=== PATIENT | female | born 1960 | race Caucasian/White ===

== ENCOUNTER 2020-05-18 09:42 | Day surgery (SDC) | payer MEDICARE ==
[2020-05-18] MEDS ORDERED: Depo-Medrol 40 MG/ML IM ONE (09:43)
[2020-05-18] MEDS ORDERED: BUPIVACAINE 0.5% VIAL IJ ONE (09:43)
[2020-05-18] MEDS ORDERED: DIPRIVAN 200 MG/20 ML IV ONE (11:02)
[2020-05-18] MEDS ORDERED: Ketamine HCl 50 MG/ML ONE (11:02)
--- NOTE | 2020-05-18 11:49 | XRAY ---
Indication: Right knee injection. Intraoperative fluoroscopy was provided for 7 seconds. Single digital spot image submitted for interpretation demonstrates needle tip projecting over the right femur intercondylar notch. Small amount of contrast injected for needle tip placement. Correlate with intraoperative findings/report.
--- NOTE | 2020-05-18 11:49 | XRAY ---
Indication: Left knee injection. Intraoperative fluoroscopy was provided for 3 seconds. Single digital spot image submitted for interpretation demonstrates needle tip projecting over the left femur intercondylar notch. Small amount of contrast injected for needle tip placement. Correlate with intraoperative findings/report.
--- NOTE | 2020-05-18 13:04 | XRAY ---
7 seconds fluoroscopy time in surgery for right knee injection.
--- NOTE | 2020-05-18 13:14 | XRAY ---
3 seconds fluoroscopy time in surgery for left knee injection.
[2020-05-18] MEDS ORDERED: Lactated Ringers 1,000 ML IV ONE (15:29)
== END 2020-05-18 11:31 | disposition home or self-care (01) ==
LOC: SDC-PAIN 09:42
PROVIDERS: ATTEND Psychiatry & Neurology Pain Medicine
DX: M17.0 Bilateral primary osteoarthritis of knee (principal); E11.9 Type 2 diabetes mellitus without complications; I10 Essential (primary) hypertension; E78.5 Hyperlipidemia, unspecified; K21.9 Gastro-esophageal reflux disease without esophagitis; J45.909 Unspecified asthma, uncomplicated
CPT/HCPCS: 73560; 77002; 82947; J1030; J2704

== ENCOUNTER 2020-07-20 11:17 | Day surgery (SDC) | payer MEDICARE ==
[2020-07-20] MEDS ORDERED: Depo-Medrol 40 MG/ML IM ONE (11:18)
[2020-07-20] MEDS ORDERED: BUPIVACAINE 0.5% VIAL IJ ONE (11:18)
[2020-07-20] MEDS ORDERED: Lactated Ringers 1,000 ML IV ONE (14:06)
--- NOTE | 2020-07-20 15:00 | XRAY ---
Indication: Bilateral SI joint injection. Intraoperative fluoroscopy provided for 16 seconds. 4 digital spot images submitted for interpretation demonstrates posterior needle tip projecting over the inferior left and right SI joint. Correlate with intraoperative findings/report.
--- NOTE | 2020-07-20 15:03 | XRAY ---
16 seconds fluoroscopy time in surgery for bilateral SI joint injections.
== END 2020-07-20 13:43 | disposition home or self-care (01) ==
LOC: SDC-PAIN 11:17
PROVIDERS: ATTEND Psychiatry & Neurology Pain Medicine
DX: M46.1 Sacroiliitis, not elsewhere classified (principal); E11.9 Type 2 diabetes mellitus without complications; I10 Essential (primary) hypertension; E78.5 Hyperlipidemia, unspecified; K21.9 Gastro-esophageal reflux disease without esophagitis; Z79.899 Other long term (current) drug therapy
CPT/HCPCS: 27096; 72202; 77002; 82947; G0260; J1030

== ENCOUNTER 2020-08-24 09:44 | Day surgery (SDC) | payer MEDICARE ==
[2020-08-24] MEDS ORDERED: BUPIVACAINE 0.5% VIAL IJ ONE (09:45)
[2020-08-24] MEDS ORDERED: Lactated Ringers 1,000 ML IV ONE (09:45)
[2020-08-24] MEDS ORDERED: Ketamine HCl 50 MG/ML ONE (11:20)
[2020-08-24] MEDS ORDERED: DIPRIVAN 200 MG/20 ML IV ONE ×2 (11:20→11:28)
--- NOTE | 2020-08-24 12:27 | XRAY ---
Indication: Right knee genicular nerve block. Intraoperative fluoroscopy provided for 8 seconds. 2 digital spot images of the right knee submitted for interpretation demonstrates anterior medial/lateral supracondylar and medial tibial plateau needles. Correlate with intraoperative findings/report.
--- NOTE | 2020-08-24 12:29 | XRAY ---
8 seconds fluoroscopy time in surgery for genicular nerve block of the right knee.
--- NOTE | 2020-08-24 12:29 | XRAY ---
Indication: Left knee genicular nerve block. Intraoperative fluoroscopy provided for 8 seconds. 2 digital spot images of the left knee submitted for interpretation demonstrates anterior medial/lateral supracondylar and medial tibial plateau needles. Correlate with intraoperative findings/report.
--- NOTE | 2020-08-24 12:40 | XRAY ---
8 seconds fluoroscopy time in surgery for genicular nerve block of the left knee.
== END 2020-08-24 11:51 | disposition home or self-care (01) ==
LOC: SDC-PAIN 09:44
PROVIDERS: ATTEND Psychiatry & Neurology Pain Medicine
DX: M46.1 Sacroiliitis, not elsewhere classified (principal); E11.9 Type 2 diabetes mellitus without complications; I10 Essential (primary) hypertension; E78.5 Hyperlipidemia, unspecified; J45.909 Unspecified asthma, uncomplicated; K21.9 Gastro-esophageal reflux disease without esophagitis; Z79.899 Other long term (current) drug therapy
CPT/HCPCS: 64454; 73560; 77002; 82947; J2704

== ENCOUNTER 2020-12-07 10:59 | Day surgery (SDC) | payer MEDICARE ==
[2020-12-07] MEDS ORDERED: BUPIVACAINE 0.5% VIAL IJ ONE (11:00)
[2020-12-07] MEDS ORDERED: GELSYN-3 IU ONE (11:00)
[2020-12-07] MEDS ORDERED: DIPRIVAN 200 MG/20 ML IV ONE ×2 (12:23→12:35)
--- NOTE | 2020-12-07 13:54 | XRAY ---
8 seconds fluoroscopy time in surgery for intra-articular injection of the right knee.
--- NOTE | 2020-12-07 13:54 | XRAY ---
Indication: Left knee injection. Intraoperative fluoroscopy provided for 10 seconds. Single digital spot image submitted for interpretation demonstrates needle tip projecting over the left femur intracondylar notch. Small amount of contrast injected for needle tip placement. Correlate with intraoperative findings/report.
--- NOTE | 2020-12-07 13:54 | XRAY ---
Indication: Right knee injection. Intraoperative fluoroscopy provided for 8 seconds. Single digital spot image submitted for interpretation demonstrates needle tip projecting over the right femur intracondylar notch. Small amount of contrast injected for needle tip placement. Correlate with intraoperative findings/report.
--- NOTE | 2020-12-07 13:54 | XRAY ---
10 seconds fluoroscopy time in surgery for intra-articular injection of the left knee.
[2020-12-07] MEDS ORDERED: Lactated Ringers 1,000 ML IV ONE (15:32)
== END 2020-12-07 13:12 | disposition home or self-care (01) ==
LOC: SDC-PAIN 10:59
PROVIDERS: ATTEND Psychiatry & Neurology Pain Medicine
DX: M17.0 Bilateral primary osteoarthritis of knee (principal); E11.9 Type 2 diabetes mellitus without complications; I10 Essential (primary) hypertension; E78.5 Hyperlipidemia, unspecified; J45.909 Unspecified asthma, uncomplicated; K21.9 Gastro-esophageal reflux disease without esophagitis; Z79.899 Other long term (current) drug therapy
CPT/HCPCS: 20610; 73560; 77002; 82947; J2704; Q9966; J7328

== ENCOUNTER 2020-12-14 10:43 | Day surgery (SDC) | payer MEDICARE ==
[2020-12-14] MEDS ORDERED: DIPRIVAN 200 MG/20 ML IV ONE (12:35)
--- NOTE | 2020-12-14 13:33 | XRAY ---
4 seconds fluoroscopy time in surgery for intra-articular injection of the right knee.
--- NOTE | 2020-12-14 13:34 | XRAY ---
Indication: Right knee injection. Intraoperative fluoroscopy provided for 4 seconds. Single digital spot image submitted for interpretation demonstrates needle tip projecting over the right femur intercondylar notch. Small amount of contrast injected for needle tip placement. Correlate with intraoperative findings/report.
--- NOTE | 2020-12-14 13:43 | XRAY ---
4 seconds fluoroscopy time in surgery for intra-articular injection of the left knee.
--- NOTE | 2020-12-14 13:43 | XRAY ---
Indication: Left knee injection. Intraoperative fluoroscopy provided for 4 seconds. Single digital spot image submitted for interpretation demonstrates needle tip projecting over the left femur intercondylar notch. Small amount of contrast injected for needle tip placement. Correlate with intraoperative findings/report.
[2020-12-14] MEDS ORDERED: Lactated Ringers 1,000 ML IV ONE (15:32)
== END 2020-12-14 13:01 | disposition home or self-care (01) ==
LOC: SDC-PAIN 10:43
PROVIDERS: ATTEND Psychiatry & Neurology Pain Medicine
DX: M17.0 Bilateral primary osteoarthritis of knee (principal); Z79.899 Other long term (current) drug therapy; E11.9 Type 2 diabetes mellitus without complications; I10 Essential (primary) hypertension; E78.5 Hyperlipidemia, unspecified; K21.9 Gastro-esophageal reflux disease without esophagitis
CPT/HCPCS: 73560; 77002; 82947; J2704

== ENCOUNTER 2020-12-21 10:49 | Day surgery (SDC) | payer MEDICARE ==
[2020-12-21] MEDS ORDERED: GELSYN-3 IU ONE (10:50)
[2020-12-21] MEDS ORDERED: Xylocaine 1% Vial 30 ML PF IJ ONE (10:50)
[2020-12-21] MEDS ORDERED: DIPRIVAN 200 MG/20 ML IV ONE (13:13)
--- NOTE | 2020-12-21 15:58 | XRAY ---
6 seconds of fluoroscopy was used in surgery for a right intra-articular knee injection.
--- NOTE | 2020-12-21 15:58 | XRAY ---
8 seconds of fluoroscopy was used in surgery for a left intra-articular knee injection.
[2020-12-21] MEDS ORDERED: Lactated Ringers 1,000 ML IV ONE (17:31)
== END 2020-12-21 13:41 | disposition home or self-care (01) ==
LOC: SDC-PAIN 10:49
PROVIDERS: ATTEND Psychiatry & Neurology Pain Medicine
DX: M17.0 Bilateral primary osteoarthritis of knee (principal); E11.9 Type 2 diabetes mellitus without complications; I10 Essential (primary) hypertension; E78.5 Hyperlipidemia, unspecified; Z79.899 Other long term (current) drug therapy
CPT/HCPCS: 20610; 73560; 76942; 77002; 82947; J2001; J2704; Q9966; J7328

== ENCOUNTER 2021-02-08 10:47 | Day surgery (SDC) | payer MEDICARE ==
[2021-02-08] MEDS ORDERED: LIDOCAINE HCL 2% 100 MG/5 ML IJ ONE (10:48)
[2021-02-08] MEDS ORDERED: Lactated Ringers 1,000 ML IV ONE (12:29)
[2021-02-08] MEDS ORDERED: DIPRIVAN 200 MG/20 ML IV ONE (13:16)
--- NOTE | 2021-02-08 15:21 | XRAY ---
Indication: Bilateral L4-S1 MBB. Intraoperative fluoroscopy provided for 17 seconds. Single digital spot image submitted for interpretation demonstrates posterior needle tips projecting over the expected left and right L4-S1 nerve roots. Correlate with intraoperative findings/report.
--- NOTE | 2021-02-08 16:42 | XRAY ---
17 seconds of fluoroscopy was used in surgery for a bilateral L4-S1 MBB.
== END 2021-02-08 14:10 | disposition home or self-care (01) ==
LOC: SDC-PAIN 10:47
PROVIDERS: ATTEND Psychiatry & Neurology Pain Medicine
DX: M47.816 Spondylosis without myelopathy or radiculopathy, lumbar region (principal); E11.9 Type 2 diabetes mellitus without complications; Z79.899 Other long term (current) drug therapy
CPT/HCPCS: 64493; 64494; 72020; 77002; 82947; J2704

== ENCOUNTER 2021-03-15 10:59 | Day surgery (SDC) | payer MEDICARE ==
[2021-03-15] MEDS ORDERED: BUPIVACAINE 0.5% VIAL IJ ONE (11:00)
[2021-03-15] MEDS ORDERED: DIPRIVAN 200 MG/20 ML IV ONE (12:17)
[2021-03-15] MEDS ORDERED: Lactated Ringers 1,000 ML IV ONE (15:21)
--- NOTE | 2021-03-15 16:39 | XRAY ---
Indication: Bilateral L4-S1 MBB. Intraoperative fluoroscopy provided for 15 seconds. Single digital spot image submitted for interpretation demonstrates posterior needle tips projecting over the expected left and right L4-S1 nerve roots. Correlate with intraoperative findings/report.
--- NOTE | 2021-03-15 16:53 | XRAY ---
15 seconds fluoroscopy time in surgery for bilateral L4-S1 MBB.
== END 2021-03-15 12:37 | disposition home or self-care (01) ==
LOC: SDC-PAIN 10:59
PROVIDERS: ATTEND Psychiatry & Neurology Pain Medicine
DX: M47.816 Spondylosis without myelopathy or radiculopathy, lumbar region (principal); E11.9 Type 2 diabetes mellitus without complications; Z79.899 Other long term (current) drug therapy
CPT/HCPCS: 64493; 64494; 72020; 77002; 82947; J2704

== ENCOUNTER 2021-04-19 11:39 | Day surgery (SDC) | payer MEDICARE ==
[2021-04-19] MEDS ORDERED: Depo-Medrol 40 MG/ML IM ONE (11:40)
[2021-04-19] MEDS ORDERED: Xylocaine 1% Vial 30 ML PF IJ ONE (11:40)
[2021-04-19] MEDS ORDERED: BUPIVACAINE 0.5% VIAL IJ ONE (11:40)
[2021-04-19] MEDS ORDERED: DIPRIVAN 200 MG/20 ML IV ONE (14:10)
[2021-04-19] MEDS ORDERED: Lactated Ringers 1,000 ML IV ONE (14:39)
--- NOTE | 2021-04-19 15:16 | XRAY ---
Indication: Right L4-S1 RFA. Intraoperative fluoroscopy provided for 27 seconds. 3 digital spot image submitted for interpretation demonstrates posterior needle tips projecting over the expected right L4-S1 nerve roots. Correlate with intraoperative findings/report.
--- NOTE | 2021-04-19 16:51 | XRAY ---
27 seconds fluoroscopy time in surgery for right L4-S1 RFA.
== END 2021-04-19 14:30 | disposition home or self-care (01) ==
LOC: SDC-PAIN 11:39
PROVIDERS: ATTEND Psychiatry & Neurology Pain Medicine
DX: M47.816 Spondylosis without myelopathy or radiculopathy, lumbar region (principal); F41.9 Anxiety disorder, unspecified; F32.9 Major depressive disorder, single episode, unspecified; E11.9 Type 2 diabetes mellitus without complications; I10 Essential (primary) hypertension; E78.5 Hyperlipidemia, unspecified; Z79.899 Other long term (current) drug therapy
CPT/HCPCS: 64635; 64636; 72100; 77002; 82947; J1030; J2001; J2704

== ENCOUNTER 2021-04-26 11:40 | Day surgery (SDC) | payer MEDICARE ==
[2021-04-26] MEDS ORDERED: Depo-Medrol 40 MG/ML IM ONE (11:41)
[2021-04-26] MEDS ORDERED: Xylocaine 1% Vial 30 ML PF IJ ONE (11:41)
[2021-04-26] MEDS ORDERED: BUPIVACAINE 0.5% VIAL IJ ONE (11:41)
[2021-04-26] MEDS ORDERED: Lactated Ringers 1,000 ML IV ONE (12:39)
[2021-04-26] MEDS ORDERED: DIPRIVAN 200 MG/20 ML IV ONE ×2 (13:41→13:50)
--- NOTE | 2021-04-26 15:15 | XRAY ---
Indication: Left L4-S1 RFA. Intraoperative fluoroscopy provided for 39 seconds. 4 digital spot image submitted for interpretation demonstrates posterior needle tips projecting over the expected left L4-S1 nerve roots. Correlate with intraoperative findings/report.
--- NOTE | 2021-04-26 15:18 | XRAY ---
39 seconds fluoroscopy time in surgery for left L4-S1 RFA.
== END 2021-04-26 14:18 | disposition home or self-care (01) ==
LOC: SDC-PAIN 11:40
PROVIDERS: ATTEND Psychiatry & Neurology Pain Medicine
DX: M47.816 Spondylosis without myelopathy or radiculopathy, lumbar region (principal); Z79.891 Long term (current) use of opiate analgesic; E11.8 Type 2 diabetes mellitus with unspecified complications
CPT/HCPCS: 64635; 64636; 72100; 77002; 82947; J1030; J2001; J2704

== ENCOUNTER 2022-08-15 10:57 | Day surgery (SDC) | payer MEDICARE ==
[2022-08-15] MEDS ORDERED: GELSYN-3 IU ONE (10:58)
[2022-08-15] MEDS ORDERED: DIPRIVAN 200 MG/20 ML IV ONE (12:55)
[2022-08-15] MEDS ORDERED: Lactated Ringers 1,000 ML IV ONE (13:56)
--- NOTE | 2022-08-15 14:12 | XRAY ---
Indication: Right knee injection. Intraoperative fluoroscopy provided for 8 seconds. Single digital spot image submitted for interpretation demonstrates needle tip projecting over the right femur intercondylar notch. Small amount of contrast injected for needle tip placement. Correlate with intraoperative findings/report.
--- NOTE | 2022-08-15 14:13 | XRAY ---
Indication: Left knee injection. Intraoperative fluoroscopy provided for 9 seconds. Single digital spot image submitted for interpretation demonstrates needle tip projecting over the left femur intercondylar notch. Small amount of contrast injected for needle tip placement. Correlate with intraoperative findings/report.
--- NOTE | 2022-08-15 14:14 | XRAY ---
8 seconds of fluoroscopy was used in surgery for a right intra-articular knee injection.
--- NOTE | 2022-08-15 14:15 | XRAY ---
9 seconds of fluoroscopy was used in surgery for a left intra-articular knee injection.
== END 2022-08-15 13:30 | disposition home or self-care (01) ==
LOC: SDC-PAIN 10:57
PROVIDERS: ATTEND Psychiatry & Neurology Pain Medicine
DX: M17.0 Bilateral primary osteoarthritis of knee (principal); E11.9 Type 2 diabetes mellitus without complications; Z79.899 Other long term (current) drug therapy
CPT/HCPCS: 20610; 73560; 77002; 82947; J2704; J7328; Q9966

== ENCOUNTER 2022-08-22 10:54 | Day surgery (SDC) | payer MEDICARE ==
[2022-08-22] MEDS ORDERED: GELSYN-3 IU ONE (10:55)
[2022-08-22] MEDS ORDERED: DIPRIVAN 200 MG/20 ML IV ONE (13:32)
[2022-08-22] MEDS ORDERED: Lactated Ringers 1,000 ML IV ONE (15:29)
--- NOTE | 2022-08-22 16:35 | XRAY ---
Indication: Left knee injection. Intraoperative fluoroscopy provided for 11 seconds. Single digital spot image submitted for interpretation demonstrates needle tip projecting over the left femur intercondylar notch. Small amount of contrast injected for needle tip placement. Correlate with intraoperative findings/report.
--- NOTE | 2022-08-22 16:35 | XRAY ---
Indication: Right knee injection. Intraoperative fluoroscopy provided for 9 seconds. Single digital spot image submitted for interpretation demonstrates needle tip projecting over the right femur intercondylar notch. Small amount of contrast injected for needle tip placement. Correlate with intraoperative findings/report.
--- NOTE | 2022-08-22 16:50 | XRAY ---
9 seconds of fluoroscopy was used in surgery for a right intra-articular knee injection.
--- NOTE | 2022-08-22 16:50 | XRAY ---
11 seconds of fluoroscopy was used in surgery for a left intra-articular knee injection.
== END 2022-08-22 14:10 | disposition home or self-care (01) ==
LOC: SDC-PAIN 10:54
PROVIDERS: ATTEND Psychiatry & Neurology Pain Medicine
DX: M17.0 Bilateral primary osteoarthritis of knee (principal); E11.9 Type 2 diabetes mellitus without complications; Z79.899 Other long term (current) drug therapy
CPT/HCPCS: 20610; 73560; 77002; 82947; J2704; J7328; Q9966

== ENCOUNTER 2022-08-29 11:23 | Day surgery (SDC) | payer MEDICARE ==
[2022-08-29] MEDS ORDERED: GELSYN-3 IU ONE (11:24)
[2022-08-29] MEDS ORDERED: DIPRIVAN 200 MG/20 ML IV ONE ×2 (12:38→12:46)
--- NOTE | 2022-08-29 13:47 | XRAY ---
Indication: Left knee injection. Intraoperative fluoroscopy provided for 8 seconds. Single digital spot image submitted for interpretation demonstrates needle tip projecting of the left femur intercondylar notch. Small amount of contrast injected for needle tip placement. Correlate with intraoperative findings/report.
--- NOTE | 2022-08-29 13:47 | XRAY ---
Indication: Right knee injection. Intraoperative fluoroscopy provided for 5 seconds. Single digital spot image submitted for interpretation demonstrates needle tip projecting of the right femur intercondylar notch. Small amount of contrast injected for needle tip placement. Correlate with intraoperative findings/report.
[2022-08-29] MEDS ORDERED: Lactated Ringers 1,000 ML IV ONE (14:26)
--- NOTE | 2022-08-29 14:45 | XRAY ---
8 seconds of fluoroscopy was used in surgery for a left intra-articular knee injection.
--- NOTE | 2022-08-29 14:45 | XRAY ---
5 seconds of fluoroscopy was used in surgery for a right intra-articular knee injection.
== END 2022-08-29 13:10 | disposition home or self-care (01) ==
LOC: SDC-PAIN 11:23
PROVIDERS: ATTEND Psychiatry & Neurology Pain Medicine
DX: M17.0 Bilateral primary osteoarthritis of knee (principal); E11.9 Type 2 diabetes mellitus without complications; Z79.899 Other long term (current) drug therapy
CPT/HCPCS: 20610; 73560; 77002; 82947; J2704; J7328

== ENCOUNTER 2023-07-31 10:12 | Day surgery (SDC) | payer MEDICARE ==
[2023-07-31] MEDS ORDERED: BUPIVACAINE 0.5% VIAL IJ ONE (10:13)
[2023-07-31] MEDS ORDERED: XYLOCAINE-MPF 1% 5ML SDV IJ ONE (10:13)
[2023-07-31] MEDS ORDERED: Depo-Medrol 40 MG/ML IM ONE (10:13)
[2023-07-31] MEDS ORDERED: DIPRIVAN 200 MG/20 ML IV ONE ×2 (12:03→12:14)
[2023-07-31] MEDS ORDERED: Lactated Ringers 1,000 ML IV ONE (12:17)
--- NOTE | 2023-07-31 14:43 | XRAY ---
Indication: Left L4-S1 RFA. Intraoperative fluoroscopy provided for 25 seconds. 4 digital spot images submitted for interpretation demonstrates posterior needle tips projecting over the expected left L4-S1 nerve roots. Correlate with intraoperative findings/report.
--- NOTE | 2023-07-31 14:47 | XRAY ---
25 seconds of fluoroscopy was used in surgery for a left L4-S1 RFA.
== END 2023-07-31 12:40 | disposition home or self-care (01) ==
LOC: SDC-PAIN 10:12
PROVIDERS: ATTEND Psychiatry & Neurology Pain Medicine
DX: M47.816 Spondylosis without myelopathy or radiculopathy, lumbar region (principal); E11.9 Type 2 diabetes mellitus without complications
CPT/HCPCS: 64635; 64636; 72100; 77002; 82947; J1030; J2704

== ENCOUNTER 2023-08-07 09:47 | Day surgery (SDC) | payer MEDICARE ==
[2023-08-07] MEDS ORDERED: XYLOCAINE-MPF 1% 5ML SDV IJ ONE (09:48)
[2023-08-07] MEDS ORDERED: BUPIVACAINE 0.5% VIAL IJ ONE (09:48)
[2023-08-07] MEDS ORDERED: Depo-Medrol 40 MG/ML IM ONE (09:48)
[2023-08-07] MEDS ORDERED: DIPRIVAN 200 MG/20 ML IV ONE ×2 (11:33→11:45)
[2023-08-07] MEDS ORDERED: Lactated Ringers 1,000 ML IV ONE (12:16)
--- NOTE | 2023-08-07 13:06 | XRAY ---
Indication: Right L4-S1 RFA. Intraoperative fluoroscopy provided for 32 seconds. 4 digital spot images submitted for interpretation demonstrates posterior needle tips projecting over expected right L4-S1 nerve roots. Correlate with intraoperative findings/report.
--- NOTE | 2023-08-07 13:50 | XRAY ---
32 seconds of fluoroscopy was used in surgery for a right L4-S1 RFA.
== END 2023-08-07 12:15 | disposition home or self-care (01) ==
LOC: SDC-PAIN 09:47
PROVIDERS: ATTEND Psychiatry & Neurology Pain Medicine
DX: M47.816 Spondylosis without myelopathy or radiculopathy, lumbar region (principal); E11.9 Type 2 diabetes mellitus without complications; Z79.899 Other long term (current) drug therapy
CPT/HCPCS: 64635; 64636; 72100; 77002; 82947; J1030; J2704

== ENCOUNTER 2025-04-07 12:08 | Day surgery (SDC) | payer MEDICARE, OTHER ==
[2025-04-07] MEDS ORDERED: GELSYN-3 IU ONE (12:09)
[2025-04-07] MEDS ORDERED: D50W 50 ml Abboject IV ONE (12:50)
[2025-04-07] MEDS ORDERED: propofoL IV ONE ×2 (13:42→13:54)
[2025-04-07] MEDS ORDERED: Lactated Ringers 1,000 ML IV ONE (14:52)
--- NOTE | 2025-04-07 14:53 | XRAY ---
Indication: Left knee injection. Intraoperative fluoroscopy provided for 6 seconds. Single digital spot image submitted for interpretation demonstrates needle tip projecting over left femur intercondylar notch. Small amount of contrast injected for needle tip placement. Correlate with intraoperative findings/report.
--- NOTE | 2025-04-07 17:00 | XRAY ---
6 seconds of fluoroscopy was used in surgery for a left intra-articular knee injection.
== END 2025-04-07 14:23 | disposition home or self-care (01) ==
LOC: SDC-PAIN 12:08
PROVIDERS: ATTEND Psychiatry & Neurology Pain Medicine
DX: M17.12 Unilateral primary osteoarthritis, left knee (principal); E11.9 Type 2 diabetes mellitus without complications

== ENCOUNTER 2025-04-14 12:04 | Day surgery (SDC) | payer MEDICARE, OTHER ==
[2025-04-14] MEDS ORDERED: GELSYN-3 IU ONE (12:05)
[2025-04-14] MEDS ORDERED: LIDOCAINE HCL 1% 50 MG/5 ML VL IJ ONE (12:05)
[2025-04-14] MEDS ORDERED: propofoL IV ONE (14:28)
--- NOTE | 2025-04-14 16:33 | XRAY ---
12 seconds of fluoroscopy was used in surgery for a left intra-articular knee injection.
--- NOTE | 2025-04-14 16:42 | XRAY ---
Indication: Left knee injection. Intraoperative fluoroscopy provided for 12 seconds. Single digital spot image submitted for interpretation demonstrates needle tip projecting over left femur intercondylar notch. Small amount of contrast injected for needle tip placement. Correlate with intraoperative findings/report.
[2025-04-14] MEDS ORDERED: Lactated Ringers 1,000 ML IV ONE (17:05)
== END 2025-04-14 15:00 | disposition home or self-care (01) ==
LOC: SDC-PAIN 12:04
PROVIDERS: ATTEND Psychiatry & Neurology Pain Medicine
DX: M17.12 Unilateral primary osteoarthritis, left knee (principal); E11.9 Type 2 diabetes mellitus without complications

== ENCOUNTER 2025-04-22 09:32 | Day surgery (SDC) | payer MEDICARE, OTHER ==
[2025-04-22] MEDS ORDERED: propofoL IV ONE (11:00)
[2025-04-22] MEDS ORDERED: Lactated Ringers 1,000 ML IV ONE (11:04)
--- NOTE | 2025-04-22 12:09 | XRAY ---
Indication: Left knee injection. Intraoperative fluoroscopy provided for 9 seconds. Single digital spot image submitted for interpretation demonstrates needle tip projecting over left femur intercondylar notch. Small amount of contrast injected for needle tip placement. Correlate with intraoperative findings/report.
--- NOTE | 2025-04-22 17:00 | XRAY ---
9 seconds of fluoroscopy was used in surgery for a left intra-articular knee injection.
== END 2025-04-22 11:32 | disposition home or self-care (01) ==
LOC: SDC-PAIN 09:32
PROVIDERS: ATTEND Psychiatry & Neurology Pain Medicine
DX: M17.12 Unilateral primary osteoarthritis, left knee (principal); E11.9 Type 2 diabetes mellitus without complications